=== PATIENT | female | born 1960 | race Hispanic/Latino ===

== ENCOUNTER 2019-10-15 08:29 | Outpatient (CLI) | payer BC ==
[2019-10-15 09:21] LABS: Estimated GFR-MDRD - POC Greater than 90
--- NOTE | 2019-10-15 14:45 | CT ---
CT abdomen and pelvis without and with IV contrast HISTORY: Hematuria. FINDINGS: Each renal collecting system, ureter, and urinary bladder are decompressed without stone ev ident. No filling defects are apparent within the urinary system on the delayed images. Exophytic cyst projecting posteriorly from the cortex of the right kidney is 0.8 cm greatest diameter . Gallbladder surgically absent with mild associated distention of the biliary system. Prominent degenerative changes lumbar spine. IMPRESSION: No CT evidence of urinary tract abnormalities to explain hematuria. Small right renal cyst. Status post cholecystectomy.
== END 2019-10-15 08:30 | disposition home or self-care (01) ==
LOC: SCSCT 08:29
PROVIDERS: ATTEND Urology
DX: R31.0 Gross hematuria (principal)
CPT/HCPCS: 74178; 82565